=== PATIENT | female | born 1985 | race Caucasian/White ===

== ENCOUNTER → 2024-04-06 07:42 | Outpatient (REF) | payer OTHER, SELFPAY | LOC: HWRAD 07:42 | PROVIDERS: ATTENDING PHYSICIAN Obstetrics & Gynecology Gynecologic Oncology; FAMILY PHYSICIAN Internal Medicine | DX: Z15.02 Genetic susceptibility to malignant neoplasm of ovary (principal); Z80.3 Family history of malignant neoplasm of breast; R10.30 Lower abdominal pain, unspecified; N84.0 Polyp of corpus uteri | CPT/HCPCS: 76830; 76856 ==

== ENCOUNTER 2024-04-18 06:17 | Day surgery (SDC) | payer OTHER, SELFPAY ==
[2024-03-30 09:17] LABS: % Basophils 0.8 % (0-2); % Eosinophils 1.4 % (0-6); % Immature Granulocytes 0.2 % (0-0.5); % Lymphocytes 33.9 % (20.5-51.1); % Neutrophils 57.7 % (42.2-75.2); Absolute Eosinophils 0.1 10^3/uL (0-0.7); Absolute Lymphocytes 1.7 10^3/uL (1.2-3.4); Absolute Monocytes 0.3 10^3/uL (0.1-0.6); Absolute Neutrophils 2.8 10^3/uL (1.4-6.5); Hematocrit 38.9 % (37.0-47.0); Hemoglobin 13.1 g/dL (12.0-16.0); Mean Corp Hgb Conc. 33.7 g/dL (33.0-37.0); Mean Corpuscular Hgb 30.9 pg (27.0-31.0); Mean Corpuscular Volume 91.7 fL (81.0-99.0); Mean Platelet Volume 11.7 fL (7.4-10.4); Nucleated Red Blood Cells % 0 %; Platelet Count 235 10^3/uL (130-400); Red Blood Cell Count 4.24 10^6/uL (4.20-5.40); Red Cell Dist. Width 12.9 % (11.5-14.5); White Blood Cell Count 4.9 10^3/uL (4.8-10.8)
[2024-03-30 10:27] LABS: ALT (SGPT) 14 U/L (0-35); AST (SGOT) 19 U/L (14-36); Albumin 4.5 g/dl (3.5-5.0); Alkaline Phosphatase 49 U/L (38-126); Blood Urea Nitrogen 17 mg/dl (7-17); Carbon Dioxide 24 mmol/L (22-30); Chloride 104 mmol/L (98-107); Glucose 85 mg/dl (70-99); Potassium 4.6 mmol/L (3.5-5.1); Sodium 141 mmol/L (135-145); Total Bilirubin 0.3 mg/dl (0.2-1.3); Total Protein 7.1 g/dl (6.3-8.2); eGFR > 60.00
[2024-03-30 14:17] VITALS: BMI 27.1
--- NOTE | 2024-04-16 14:30 | W.CON.GYNONC ---
Chief Complaint
-
BRCA1 mutation, desires risk reducing surgery
History of Present Illness
37�year�old�woman�referred�by�Dr.�Olimpia,�about�a�year�ago�her�father�was�diagnosed�with�BRCA1�mutation�[id number],�ultrasound
of�pelvis�abdomen�was�done�within�the�last�year�showed�no�abnormalities.�She�has�completed�childbearing.�Patient�already�has risk�reducing�breast�surgery.
Prior�surgeries�include�appendectomy�breast�reconstruction�C�section�x�2�right�hip�fracture�and�left�hip�fracture�surgery�as�well�as bilateral�mastectomy
Ultrasound�of�pelvis�performed�[facility]�February�20�reveals�uterus�8.9�x�3.9�x�6�cm,�endometrial�stripe�7 mm,�echogenic�focus�toward�the�fundus�is�seen�10�mm�suspicious�for�polyp,�right�ovary�is�2.7�cm�left�ovary�is�3.5�cm.
Pap�smear�Thi�2023�was�negative�cytology�high�risk�HPV�was�negative. ��������������������������������������������������������������������� 11/29/2023
Ultrasound�of�pelvis�performed�[place]�2024�at�[facility]�showed�slight�increase�in�central�echogenic�endometrial�mass�which�may
be�an�endometrial�polyp.,�Specifically�the�uterus�measures�nine�4�x�42�x�62�mm,�echogenic�structure�within�the�endometrial�cavity is�about�12�mm.�Endometrial�stripe�is�4.5�mm.�Ovaries�showed�no�masses�or�abnormal�cysts.
CT�abdomen�pelvis�also�at�[facility]�shows�lung�bases�to�be�clear�she�is�status�post�bilateral�breast�reconstructive�surgery.�Liver
spleen�pancreas�gallbladder�adrenal�glands�and�kidneys�are�normal.�There�is�no�evidence�of�lymphadenopathy�or�ascites�or peritoneal�nodularity.�There�is�no�inflammation�or�masses�in�the�pelvis. repeat�CA�125�is�13.
Patient�reports�that�her�menstrual�cycles�actually�3�days,�previously�3�to�4�days.�She�has�been�contemplating�whether�she�should
have�a�hysterectomy�and�inquired�additional�information�about�the�recovery�process�as�well�as�postoperative�hormone�replacement therapy. Patient�underwent�bilateral�risk�reducing�mastectomy�[facility]�2018�previously.
Endometrial�biopsy�[facility]��shows�polyp�polypoid�fragments�of�proliferative�endometrium.�There�was�no�hyperplasia�or carcinoma�seen.
Social�History Patient�denies�ever�using�tobacco. Former�alcohol�user,�stopped�toni�2023. Denies�any�illicit�drug�use. Occupational�Status:�Current:�marketing. Patient�has�not�had�any�occupational�exposure. Marital�Status:�Patient�is�
Medical History
Allergies
Allergies reflect when allergies were last updated in [facility].
Penicillins Allergy (Verified 04/13/24 12:40)
Rash
surgical glue Allergy (Uncoded 04/13/24 12:40)
Rash
Physical Exam
Physical Exam
Pelvic�Examination: External�normal�labia,�urethra,�anus.� Vagina:�Normal�mucosa.� Cervix:�normal�appearance,�no�discharge.� Uterus:�normal�size.� Adnexa:�No�pelvic�mass.� RVE:�no�masses�or�nodularity
General:�Well�developed,�well�nourished�patient.�In�no�acute�distress. Head:�Atraumatic�and�normocephalic. Estefany Robledo, 1985 Page 2 of 3 Neck:�No�thyromegaly.�No�cervical�lymphadenopathy.
Lungs:�Clear�to�auscultation.�Good�air�movement�bilaterally. Cardiac:�Regular�rate.�Regular�rhythm.�No�murmurs�appreciated. Abdomen:�Abdomen�is�soft.�Non�tender�to�palpation.�Non�distended. Extremities:�No�edema.
Hematologic/Lymphatic:�No�palpable�lymphadenopathy. Musculoskeletal:�Normal�range�of�motion.�Strength�and�Tone�are�normal. Skin:Non�jaundiced.�No�petechia.�No�purpura. Neurologic:�Speech�is�fluent.�Normal�gait�and�station.�Cranial�nerves�intact.
Results
-
03/30/24 06:44
03/30/24 06:44
Diagnostic Imaging Report
SignedOrder #:[id number]
Exams: US Pelvis W Transvag Combined
Examinations: Transabdominal and transvaginal pelvic ultrasound on 04/06/2024 7:53 AM
Clinical Information: Follow-up
Comparison: Ultrasound pelvis 07/30/2020.
FINDINGS:
The following represents a composite report of the transabdominal and transvaginal sonographic examination of the pelvis.
The uterus measures 8.9 x 3.1 x 4.7 cm. The uterus has a homogeneous echotexture without focal mass. Endometrial stripe is within normal limits for patient's age and measures 3 mm maximal thickness. Redemonstration of a hyperechoic focus within the
endometrium measuring approximately 8 x 7 x 9 mm, increased from prior. No overt color Doppler flow demonstrated.
The right ovary measures 3.0 x 1.7 x 2.9 cm and is within normal limits.
The left ovary measures 2.8 x 1.9 x 2.3 cm and is within normal limits.
Urinary bladder shows no gross abnormality. There is no free fluid or suspicious adnexal mass.

IMPRESSION:

1. Redemonstration of possible endometrial polyp measuring up to 9 mm, slightly increased from prior.
2. Otherwise unremarkable exam.
Electronically signed by Inderjit Cordoba, 04/06/2024 9:42 AM
Dictated By: Inderjit Cordoba MD
Dictated Date & Time: 04/06/24 0937
Impression / Plan
-
I�discussed�with�the�patient�[facility]�guidelines�regarding�prevention�of�malignancy�in�patients�with�deleterious�BRCA1�germline
mutations.�She�understands�her�risk�of�breast�cancer,�ovary/fallopian�tube�cancer�pancreatic�cancer�as�well�as�possible�melanoma development.
She�is�already�status�post�bilateral�mastectomy.�We�discussed�that�she�has�approximately�40%�risk�of�development�of�ovarian
cancer�lifetime�and�the�recommendation�is�for�performing�at�a�minimum�bilateral�salpingo�oophorectomy�at�36�or�at�completion�of childbearing.�She�is�not�interested�in�future�childbearing.�
The�patient�is�desirous�of�having�total�hysterectomy�with�bilateral�salpingo�oophorectomy�,�surgery�scheduled�currently�February�11.
Risk�of�surgery�including�infection�bleeding�injury�to�adjacent�organs�DVT�pulmonary�embolism�and�cardiovascular�complications were�discussed�and�reviewed.�Informed�consent�was�done�
[2024-04-18] VITALS (12 sets, daily range): BP systolic 102–126; BP diastolic 45–77; BMI 27.1
[2024-04-18] MEDS: HEPARIN 5000 UNITS SC (06:49)
[2024-04-18] MEDS: NEURONTIN 300 MG PO (06:49)
[2024-04-18] MEDS: CELEBREX 200 MG PO (06:49)
[2024-04-18] MEDS: TYLENOL 1000 MG PO (06:49)
[2024-04-18] MEDS: NORMOSOL-R/PLASMALYTE-A 1000 IV (06:50)
[2024-04-18] MEDS: TRANSDERM-SCOP 1 PATCH TRANSDERM (07:22)
--- NOTE | 2024-04-18 09:34 | OR.RPT ---
Operative Report
Operative Report
Preoperative diagnosis: BRCA1 mutation desirous of gynecologic risk reducing surgery
Postop diagnosis: Same, normal-appearing uterus cervix bilateral tubes and ovaries
Procedure:
Robotic assisted total laparoscopic hysterectomy, bilateral salpingo-oophorectomy, pelvic washings
TAP block
Surgeon:Cuauhtemoc Bone MD
Assist: Svetlana Hills PA-C
Anesthesia: General ET
Estimated blood loss: 50 cc
Complications: None
Specimen: Uterus and cervix, bilateral tubes and ovaries, pelvic washings
Findings: Exploration of the abdomen reveals right and left diaphragms to be within normal limits, there is a small portion of omentum which is adherent to the left aspect of prior scar, liver stomach gallbladder right and left paracolic
gutters and omentum are without any evidence of disease. Left ovary appears to have a physiologic cyst otherwise bilateral tubes and ovaries are normal. There is no pelvic or peritoneal implants. Loops of small bowel on limited examination do not
appear to be abnormal.
Procedure: This patient was taken to the operating room, placed in supine position, general anesthesia was administered. She was intubated without any difficulty. Next she was placed in lithotomy position using yellowfin stirrups and prepped in
the abdomen perineum and vagina. Both arms were wrapped and placed along the patient's side. Appropriate padding's were used to support patient's shoulders and head and neck. The patient was draped. Timeout procedure was carried out, she
received prophylactic antibiotics with Ancef and Flagyl. Wheeler catheter was inserted under sterile condition to drain the bladder. Cervix was examined, cervical canal was dilated up to 23 Hegar dilator, silviculture teacher type uterine manipulator was
placed in the uterus with 3.0 SVETLANA ring, vaginal cuff balloon was insufflated. Attention was turned abdominally. Veress needle was inserted just below the left subcostal margin into the peritoneal cavity and CO2 insufflation was performed up to
pressure of 15 mmHg. 8 mm X Xi robotic port was inserted along the midline 25 cm cephalad to symphysis pubis into the peritoneal cavity, under direct visualization 8 mm ports for robot were placed right upper quadrant left upper quadrant and right
and left lateral abdomen. Exploration of the abdomen was completed with the findings noted above. Next tap block was performed with combination of ropivacaine and Decadron injected 2 fingerbreadths below the lateral aspect of right and left costal
margin above the peritoneum and under the muscle as well as right and left mid abdomen. Next patient was placed in 28 degree Trendelenburg, robotic system was docked washings were collected in the pelvis and submitted for pathology. The adhesion
of the omentum to the anterior abdominal wall was taken down sharply, right and left round ligaments were sealed and divided anterior and posterior leaves of the broad ligament were dissected open and retroperitoneal spaces were opened and the
course of ureter was visualized bilaterally. Avascular space of ureter and IP ligament were opened. Both IP ligaments were sealed 3 times and divided tubes and ovaries were left attached to the uterus. Bladder flap was sharply developed and
advanced below the cervicovaginal junction. Uterine arteries were skeletonized. Uterine arteries followed by cardinal ligaments followed by uterosacral ligaments were sealed and divided circumferential incision was made over the SVETLANA ring until the
specimen was completely detached. Uterus cervix bilateral tubes and ovaries were removed through the vagina and submitted to pathology. Vaginal cuff apex was closed with 0 Vicryl suture ligature in a [id number] fashion incorporating
uterosacral ligaments. Following this V-Loc suture was used to close the vaginal cuff in a running fashion starting from right to left and back to the right side. An additional [id number] suture of 0 Vicryl was used to reapproximate the edges
on the right apex. We irrigated the pelvis copiously. All pedicles were examined and there were no evidence of bleeding. We removed all laps and instruments and undocked the robotic system and released the pneumoperitoneum. Vagina was examined
there was no evidence of bleeding Wheeler catheter was removed. All skin incisions were closed with 4-0 Monocryl in a subcuticular fashion. There was no indication to close the fascia. Steri-Strips was applied to all incisions. Patient was
awakened extubated and returned back to recovery room stable awake and extubated condition. Counts of laps instruments and needle was correct x 2. I was present and scrubbed for entire procedure as dictated above
Disposition: To PACU, stable awake and extubated
[2024-04-18] MEDS: DILAUDID 0.25 MG IV (09:55)
[2024-04-18] MEDS: ROXICODONE 5 MG PO (11:20)
[2024-04-18] MEDS: TYLENOL 650 MG PO (14:00)
== END 2024-04-18 15:10 | disposition home or self-care (01) ==
LOC: SDS 06:17
PROVIDERS: ATTENDING PHYSICIAN Obstetrics & Gynecology Gynecologic Oncology; FAMILY PHYSICIAN Internal Medicine
DX: N84.0 Polyp of corpus uteri (principal); N80.03 Adenomyosis of the uterus; D25.1 Intramural leiomyoma of uterus; Z15.02 Genetic susceptibility to malignant neoplasm of ovary; N83.202 Unspecified ovarian cyst, left side; K66.0 Peritoneal adhesions (postprocedural) (postinfection)
CPT/HCPCS: 58571; 88307; 36415; 80053; 85025; 86850; 86900; 86901; 88112; 93005